=== PATIENT | female | born 1970 | race Caucasian/White ===

== ENCOUNTER 2022-02-02 09:01 | Day surgery (SDC) | payer SELFPAY ==
[2022-01-30 09:22] VITALS: BMI 23.3
[2022-02-02] MEDS ORDERED: EPINEPHrine/PF 1 MG/1 ML (1:1,000) AMPULE ONE (09:28)
[2022-02-02] MEDS ORDERED: LIDOCAINE HCL 1%, 10 MG/ML (20ML VIAL) ONE (09:28)
[2022-02-02] MEDS ORDERED: ROCURONIUM BROMIDE 50 MG/5 ML SYRINGE ONE (12:41)
[2022-02-02] MEDS ORDERED: PROPOFOL 20 ML ONE (12:41)
[2022-02-02] MEDS ORDERED: MIDAZOLAM HCL 2 MG/2 ML SINGLE DOSE VIAL ONE (12:42)
[2022-02-02] MEDS ORDERED: ceFAZolin SODIUM 1 GM VIAL ONE (13:14)
[2022-02-02] MEDS ORDERED: HYDROmorphone HCL/PF 1 MG/ML VIAL ONE (13:19)
[2022-02-02] MEDS ORDERED: DEXAMETHASONE SOD PHOSPHATE 4 MG/1 ML VIAL ONE (13:20)
[2022-02-02] MEDS ORDERED: ONDANSETRON 4 MG/2 ML VIAL ONE ×2 (13:20→16:13)
[2022-02-02] MEDS ORDERED: BACITRACIN 15 GM TUBE TOPICAL OINTMENT ONE (14:04)
[2022-02-02] MEDS ORDERED: oxyCODONE HCL 5 MG TABLET PO PRN (16:35)
[2022-02-02] MEDS ORDERED: ONDANSETRON 4 MG/2 ML VIAL IVPUSH PRN ×2 (16:35→16:46)
[2022-02-02] MEDS ORDERED: cloNIDine HCL 0.1 MG TABLET PO ONE (16:36)
[2022-02-02] MEDS ORDERED: LACTATED RINGERS SOLUTION 1,000 ML IV SCH ×2 (16:45→17:00)
[2022-02-02] MEDS ORDERED: ACETAMINOPHEN 325 MG TABLET (FP) PO PRN (16:46)
[2022-02-02 17:31] VITALS: TEMP 97.8
[2022-02-02 18:08] VITALS: BP 114/61; PULSE 79; RESP 18
[2022-02-02] MEDS ORDERED: CEFAZOLIN 1 GM in DEXTROSE 5%-WATER - 50 ML IVPB SCH (19:00)
== END 2022-02-02 18:10 | disposition home or self-care (01) ==
LOC: FASU 09:01
PROVIDERS: ATTEND Plastic Surgery
CPT/HCPCS: 94760